=== PATIENT | female | born 1940 | race Caucasian/White ===

== ENCOUNTER 2019-08-31 12:31 | Emergency (ER) | payer MEDICARE, OTHER ==
[~2019-08-31] VITALS: Ht 160 cm; Wt 79.1 kg
[~2019-08-31 12:31] MED LIST: COZAAR 50MG50 MG/TAB PO; DIOVAN160 MG PO; HCTZ 25MG25 MG PO; HYGROTON25 MG PO; IBU600 MG PO; LORTAB 5/500 501 TAB PO; PRILOSEC 20MG20 MG PO; PROMETHAZINE HCL; ZOCOR 20MG20 MG PO
[2019-08-31] MEDS ORDERED: SHINGRIX V50 MCG/0.5 IM (13:16)
[2019-08-31] MEDS ORDERED: HYGROTON 2525 MG/TAB (13:17)
[2019-08-31] MEDS ORDERED: APRESOLINE 25MG25 MG PO (13:17)
[2019-08-31] MEDS ORDERED: KLOR-CON SPRIN10 MEQ PO (13:19)
[2019-08-31 13:44] LABS: COLLECTION METHOD CLEAN CATCH
[2019-08-31 13:57] LABS: PH 8 (5-8); URINE APPEARANCE Clear; URINE BACTERIA Rare /hpf; URINE BILIRUBIN Negative (NEGATIVE); URINE BLOOD Negative (NEGATIVE); URINE COLOR Yellow; URINE GLUCOSE Negative (NEGATIVE); URINE KETONE Negative (NEGATIVE); URINE LEUKOCYTE ESTERASE 2+ (NEGATIVE); URINE NITRATE Negative (NEGATIVE); URINE PROTEIN(semi-quant) Negative (NEGATIVE); URINE RBC 0-2 /hpf; URINE UROBILINOGEN Negative (NEGATIVE)
[2019-08-31] MEDS ORDERED: CEPHALEXIN500 M1 PO (14:09)
[2019-08-31 14:32] VITALS: BP 130/68; PULSE 70; TEMP 98.3
== END 2019-08-31 14:25 | disposition home or self-care (01) ==
LOC: COL.ER 12:31
PROVIDERS: Nurse Practitioner Primary Care
DX: N39.0 Urinary tract infection, site not specified (principal); I10 Essential (primary) hypertension; K21.9 Gastro-esophageal reflux disease without esophagitis
CPT/HCPCS: J1885

== ENCOUNTER → 2021-09-04 | Outpatient (CLI) | payer MEDICARE ==
[~2021-09-04] VITALS: Ht 160 cm; Wt 80.3 kg
[~2021-09-04] MED LIST changes: +APRESOLINE 25MG25 MG PO; +CEPHALEXIN500 M1 PO; +HYGROTON 2525 MG/TAB PO; +KLOR-CON SPRIN10 MEQ PO; +SHINGRIX V50 MCG/0.5 IM
[2021-09-04 13:05] VITALS: BP 181/73; PULSE 74; TEMP 98.2
[2021-09-04 14:50] VITALS: BP 146/84; PULSE 70
== END ==
LOC: COL.RAD 12:39
DX: M48.061 Spinal stenosis, lumbar region without neurogenic claudication (principal); M54.16 Radiculopathy, lumbar region
CPT/HCPCS: J3301

== ENCOUNTER 2022-01-10 15:27 | Emergency (ER) | payer MEDICARE ==
[2022-01-10 15:55] VITALS: TEMP 97.9
[2022-01-10 17:26] LABS: BASO # 0.1 K/mm3 (0.0-0.2); BASO % 0.4 % (0.0-2.0); EOS # 0.1 K/mm3 (0.0-0.7); EOS % 0.5 % (0.0-4.0); GRAN # 9.8 K/mm3 (1.4-6.5); GRAN % 76.1 % (42.2-75.2); HEMOGLOBIN 11.7 g/dl (12.5-16.0); LYMPH # 1.5 K/mm3 (1.2-3.4); LYMPH % 11.6 % (20.0-51.0); MEAN CELL VOLUME 88 fl (80.0-100.0); MEAN CORPUSCULAR HEMOGLOBIN 28 pg (27-31); MEAN CORPUSCULAR HGB CONC 32 g/dl (33.0-37.0); MEAN PLATELET VOLUME 9.3 fl (7.4-10.4); MONO # 1.4 K/mm3 (0.1-0.6); MONO % 10.9 % (1.7-9.3); PLATELET COUNT 355 K/mm3 (130-400); RED BLOOD COUNT 4.19 M/mm3 (4.10-5.30); REDCELL DISTRIBUTION WIDTH-CV 14.5 % (11.5-14.5)
[2022-01-10 17:27] LABS: HEMATOCRIT 36.7 % (37.0-47.0)
[2022-01-10 17:48] LABS: ALBUMIN 3.7 gm/dL (3.4-4.8); BILIRUBIN,TOTAL 0.4 mg/dL (0.2-1.2); CALCIUM 9.8 mg/dL (8.4-10.2); CREATININE, serum 0.84 mg/dL (0.57-1.11); POTASSIUM 3.6 mmol/L (3.5-4.5)
[2022-01-10] MEDS ORDERED: ANTIVERT 25MG25 MG PO (20:10)
[2022-01-10] MEDS ORDERED: LIDODERM 5% PATC1 EA TP (20:11)
[2022-01-10 20:20] VITALS: BP 129/58; PULSE 65
== END 2022-01-10 20:20 | disposition home or self-care (01) ==
LOC: COL.ER 15:27
PROVIDERS: Emergency Medicine
DX: S06.0X9A Concussion with loss of consciousness of unspecified duration, initial encounter (principal); Z28.310 Unvaccinated for COVID-19; Z20.822 Contact with and (suspected) exposure to COVID-19; W01.10XA Fall on same level from slipping, tripping and stumbling with subsequent striking against unspecified object, initial encounter

== ENCOUNTER 2022-03-02 22:53 | Emergency (ER) | payer MEDICARE ==
[~2022-03-02] VITALS: Ht 154.9 cm; Wt 83.6 kg
[~2022-03-02 22:53] MED LIST changes: +ANTIVERT 25MG25 MG PO; +LIDODERM 5% PATC1 EA TP
[2022-03-02 23:50] LABS: HEMOGLOBIN 10.4 g/dl (12.5-16.0); MEAN CELL VOLUME 87 fl (80.0-100.0); MEAN CORPUSCULAR HEMOGLOBIN 28 pg (27-31); MEAN CORPUSCULAR HGB CONC 32 g/dl (33.0-37.0); MEAN PLATELET VOLUME 9.4 fl (7.4-10.4); PLATELET COUNT 281 K/mm3 (130-400); RED BLOOD COUNT 3.71 M/mm3 (4.10-5.30); REDCELL DISTRIBUTION WIDTH-CV 14.6 % (11.5-14.5)
[2022-03-02 23:58] LABS: HEMATOCRIT 32.3 % (37.0-47.0)
[2022-03-03 00:12] LABS: ALANINE AMINOTRANSFERASE 11 U/L (0-55); ALBUMIN 3.2 gm/dL (3.4-4.8); ALKALINE PHOSPHATASE 52 U/L (40-150); ANION GAP 9 mmol/L (7-16); AST,SGOT 12 U/L (5-34); BILIRUBIN,TOTAL 0.4 mg/dL (0.2-1.2); BLOOD UREA NITROGEN 25 mg/dL (10-20); C-REACTIVE PROTEIN 1.06 mg/dL (0.00-0.50); CALCIUM 9.6 mg/dL (8.4-10.2); CARBON DIOXIDE 23 mmol/L (23-31); CHLORIDE 105 mmol/L (98-107); CREATININE, serum 0.85 mg/dL (0.57-1.11); GLUCOSE 113 mg/dL (70-99); LIPASE 23 U/L (8-78); POTASSIUM 3.9 mmol/L (3.5-4.5); SODIUM 137 mmol/L (136-145); TOTAL PROTEIN 6.5 gm/dL (6.2-8.1)
[2022-03-03 00:19] LABS: BAND 6 % (0-10); HYPOCHROMIA 1+; LYMPHOCYTE 12 % (20.0-51.0); NEUTROPHILS 75 % (42.0-75.2); PLATELET ESTIMATE NORMAL (NORMAL)
[2022-03-03 00:21] LABS: TROPONIN-I < 0.010 ng/mL (0.00-0.033)
[2022-03-03] MEDS ORDERED: FLEXERIL 1010 MG/TAB PO (02:16)
[2022-03-03] MEDS ORDERED: ZOFRAN ODT4 MG PO (02:16)
[2022-03-03 03:20] VITALS: BP 138/62; PULSE 67; TEMP 97.2
== END 2022-03-03 03:20 | disposition home or self-care (01) ==
LOC: COL.ER 22:53
PROVIDERS: Emergency Medicine
DX: M54.41 Lumbago with sciatica, right side (principal); K44.9 Diaphragmatic hernia without obstruction or gangrene; R42 Dizziness and giddiness; D72.829 Elevated white blood cell count, unspecified; Z88.6 Allergy status to analgesic agent
CPT/HCPCS: J1885; J2060; J2405; J2550; J7030; Q9967

== ENCOUNTER 2022-07-13 22:35 | Emergency (ER) | payer MEDICARE ==
[~2022-07-13 22:35] MED LIST changes: +FLEXERIL 1010 MG/TAB PO; +ZOFRAN ODT4 MG PO
[2022-07-13 22:39] VITALS: TEMP 97.6
[2022-07-13 22:52] LABS: BASO # 0.1 K/mm3 (0.0-0.2); BASO % 0.5 % (0.0-2.0); EOS # 0.1 K/mm3 (0.0-0.7); EOS % 0.9 % (0.0-4.0); GRAN # 8.6 K/mm3 (1.4-6.5); GRAN % 71.9 % (42.2-75.2); HEMATOCRIT 38.9 % (37.0-47.0); HEMOGLOBIN 12.3 g/dl (12.5-16.0); LYMPH % 17.1 % (20.0-51.0); MEAN CELL VOLUME 85 fl (80.0-100.0); MEAN CORPUSCULAR HEMOGLOBIN 27 pg (27-31); MEAN CORPUSCULAR HGB CONC 32 g/dl (33.0-37.0); MEAN PLATELET VOLUME 9.5 fl (7.4-10.4); MONO # 1.1 K/mm3 (0.1-0.6); MONO % 9.1 % (1.7-9.3); PLATELET COUNT 396 K/mm3 (130-400); REDCELL DISTRIBUTION WIDTH-CV 15.7 % (11.5-14.5)
[2022-07-13 23:19] LABS: ALBUMIN 3.7 gm/dL (3.4-4.8); BILIRUBIN,TOTAL 0.5 mg/dL (0.2-1.2); CALCIUM 10.2 mg/dL (8.4-10.2); CREATININE, serum 0.88 mg/dL (0.57-1.11); POTASSIUM 3.7 mmol/L (3.5-4.5); TOTAL PROTEIN 7.4 gm/dL (6.2-8.1)
[2022-07-13 23:25] LABS: TROPONIN-I 0.026 ng/mL (0.00-0.033)
[2022-07-13 23:32] LABS: COLLECTION METHOD CLEAN CATCH
[2022-07-13 23:39] LABS: MUCOUS Present (NOT PRESENT); URINE BACTERIA Rare /hpf (NONE SEEN)
[2022-07-13 23:40] LABS: URINE APPEARANCE Hazy (CLEAR/HAZY); URINE COLOR Yellow (YELLOW)
[2022-07-13 23:41] LABS: PH 5.5 (5.0-8.5); URINE BLOOD Negative (NEGATIVE); URINE GLUCOSE Negative (NEGATIVE); URINE KETONE Negative (NEGATIVE); URINE NITRATE Negative (NEGATIVE); URINE PROTEIN(semi-quant) Negative (NEGATIVE); URINE UROBILINOGEN 0.2 E.U/dL (0.2-1.0)
[2022-07-14] MEDS ORDERED: ZOFRAN ODT4 MG PO (00:11)
[2022-07-14 00:28] VITALS: BP 172/94; PULSE 89
== END 2022-07-14 00:28 | disposition home or self-care (01) ==
LOC: COL.ER 22:35
PROVIDERS: Nurse Practitioner Primary Care
DX: I10 Essential (primary) hypertension (principal); R11.2 Nausea with vomiting, unspecified; Z88.6 Allergy status to analgesic agent
CPT/HCPCS: J2405; J7120